=== PATIENT | male | born 1940 | race Caucasian/White ===

== ENCOUNTER 2017-01-22 09:44 | Day surgery (SDC) | payer MEDICARE ==
[~2017-01-22] VITALS: Ht 180.3 cm; Wt 75.9 kg
[~2017-01-22 09:44] MED LIST: ASPI81TA82 PO; NEBI5; VITA500015 OR
[2017-01-22 10:12] VITALS: BP 163/103; PULSE 65; RESP 18; TEMP 98; O2SAT 95
[2017-01-22] MEDS ORDERED: CHLORHEXIDINE GLUCONATE 2 % 1 PACK (2 CLOTHS) TOPICAL SCH (10:15)
[2017-01-22] MEDS ORDERED: SODIUM CHLORID 0.9% 500 ML IV PRN (10:15)
[2017-01-22] MEDS ORDERED: POVIDONE IODINE 5% (ANTISEPSIS KIT) 4 APPLICATIONS EACH NARE PRN (10:15)
[2017-01-22] MEDS ORDERED: POVIDONE IODINE 5% (ANTISEPSIS KIT) 4 APPLICATIONS EACH NARE SCH (10:15)
[2017-01-22] MEDS ORDERED: INSULIN HUMAN REGULAR 1,000 UNITS/10 ML VIAL SQ PRN (10:15)
[2017-01-22] MEDS ORDERED: CHLORHEXIDINE GLUCONATE 2 % 1 PACK (2 CLOTHS) TOPICAL PRN (10:15)
[2017-01-22] MEDS ORDERED: LACTATED RINGER'S 1000 ML IV PRN (10:15)
[2017-01-22] MEDS ORDERED: METOPROLOL TARTRATE 25 MG TAB PO PRN (10:15)
[2017-01-22] MEDS ORDERED: ceFAZolin 2 GM PREMIX 50 ML IV SCH (10:15)
[2017-01-22] MEDS ORDERED: CHOL1CAP34 PO (10:25)
[2017-01-22] MEDS ORDERED: LOSA100T PO (10:25)
[2017-01-22] MEDS ORDERED: VITA150T PO (10:25)
[2017-01-22] MEDS ORDERED: LEVO125T4 PO (10:25)
[2017-01-22] MEDS ORDERED: OCUVTAB PO (10:25)
[2017-01-22] MEDS ORDERED: AMLO5TAB2 PO (10:25)
[2017-01-22] MEDS ORDERED: ASPI81CH37 CHEW (10:25)
[2017-01-22] MEDS ORDERED: MAGN1TAB14 PO (10:25)
[2017-01-22] MEDS ORDERED: VITA100T53 PO (10:25)
[2017-01-22] MEDS ORDERED: CHOL5000 PO (10:25)
[2017-01-22] MEDS ORDERED: METO-309 PO (10:25)
[2017-01-22 10:42] LABS: AUTOMATED NEUTROPHIL # 4.2 TH/MM3 (1.8-7.7); BASOPHIL % 0.3 % (0.0-2.0); EOSINOPHIL # 0.2 TH/MM3 (0-0.4); EOSINOPHIL % 3.4 % (0.0-4.0); HEMATOCRIT 46.3 % (39.0-51.0); HEMO FLAGS DIFF FINAL; LYMPH % 28.2 % (9.0-44.0); LYMPHOCYTE # 2.1 TH/MM3 (1.0-4.8); MEAN CELL VOLUME 97.7 FL (80.0-100.0); MEAN CORPUSCULAR HGB CONC 33.8 % (32.0-36.0); MONO % 10.7 % (0.0-8.0); NEUT % 57.4 % (16.0-70.0); PLATELET COUNT 386 TH/MM3 (150-450); RED BLOOD COUNT 4.74 MIL/MM3 (4.50-5.90); RED CELL DISTRIBUTION WIDTH 14.4 % (11.6-17.2); WHITE BLOOD COUNT 7.3 TH/MM3 (4.0-11.0)
[2017-01-22] MEDS ORDERED: VANCOMYCIN HCL 1000 MG VIAL ONE (10:49)
[2017-01-22] MEDS ORDERED: SODIUM CHLOR 0.9% 250 ML INJ 250 ML ONE (10:49)
[2017-01-22 10:51] LABS: APTT (PATIENT) 27.3 SEC (24.3-30.1); PROTHROMBIN TIME - PATIENT 10.8 SEC (9.8-11.6)
[2017-01-22 10:52] LABS: BICARBONATE 29.9 MEQ/L (21.0-32.0); POTASSIUM 4.1 MEQ/L (3.5-5.1)
[2017-01-22] MEDS ORDERED: MUPIROCIN 2% OINT 1 APPLIC/GM SYR NASAL SCH (11:00)
[2017-01-22] MEDS ORDERED: NS 1000 ML IV SCH (11:00)
[2017-01-22] MEDS ORDERED: VANCOMYCIN 500 MG VIAL ONE (12:35)
[2017-01-22] MEDS ORDERED: LIDOCAINE HCL 2% 50 ML VIAL ONE (12:35)
[2017-01-22] MEDS ORDERED: MIDAZOLAM HCL 2 MG/2 ML VIAL ONE (12:52)
--- NOTE | 2017-01-22 13:41 | EKG ---
Date Performed: 01/22/2017 Time Performed: 10:32:58 PTAGE: 76 years EKG: Probable dual-chamber pacemaker Abnormal ECG COMPARED TO PRIOR ELECTROCARDIOGRAM, The T wav es are now upright in the lateral precordial leads. This is nonspecific. PREVIOUS TRACING : 12/05/2011 07.09 DOCTOR: Tk Castillo Interpretating Date/Time 01/22/2017 13:39:08
--- NOTE | 2017-01-22 14:05 | CATHPROC ---
[employer] HIS Report Study Information Study Number Admission Scheduled Start Study Start [id number] 01/22/2017 01/22/2017 Jan 22 2017 12:15PM Referring Institution Admit Source Facility Department 1 Other [facility] Car Record Clerk Physician and Clinical Staff Initial Chiquita No Hotel Maintenance Technician Heather Al,RN Other Jose Guadalupe Parkinson,RT(R) Recorder Meliza Arias,ONLINE COMMUNICATIONS MANAGER Scrub Carol Villeda,FISH BUTCHER TECH2 Equipment Time Hospital Security Officer Description Size Mfg Part Number Used/Scraped [id number] 12:52 [employer] DRAPE, IOBAN 2 [id number] 26cm x 20cm Used *[id number] 12:52 [employer] SUTURE, STRIP PLUS 1/2" * Used *[id number] 12:52 [employer] PACER ADHESIVE, MASTISOL 2/3CC 2/3CC 0523-48 Used 12:52 [employer] PACER ARMENTA, LIMB * 2530 *[id number] Used [id number] 12:52 [employer] PACER PACK, PACER CUSTOM * Used *[id number] 12:52 [employer] PACER PEN, SKIN DUAL W/ RULER * Used *[id number] PROBE COVER, STERILE [id number] 12:52 [employer] * Used ULTRASOUND W/ GEL *[id number] 12:42 Needle Sponge Count 1 1 Used 12:37 Needle Sponge Count 30 1 Used SUTURE, 2-0 VICRYL [CT1] ([id number]) SUTURE, 2-0 VICRYL [CT1] ([id number]) SUTURE, 4-0 VICRYL [PS2] ([id number]) SUTURE, 4-0 VICRYL [PS2] ([id number]) [id number] 12:52 [employer],WARM AIR CCL * Used *[id number] 12:54 [employer] PACEMAKER, ASSURITY DR PAPPAS DDDR [id number] Used [place] PAD, ELECTROSURGICAL 12:52 * [id number] *[id number] Used SURGICAL GROUNDING ORANGE 13:13 [employer] PLASMABLADE, PEAD 3.0S * [id number] Used [id number] 12:52 [employer]I. ELECTRODE, PRO-PADZ BIPHASIC * Used *[id number] Equipment Model, Serial, Lot Number and Expiration Data Description Model Number Serial Number Lot Number Expiration Date PACEMAKER, ASSMADAN MENDIOLA RF [id number] 07-12-2018 History: Allergies Allergy Reaction NKDA History: Risk Factors Hypertension Dyslipidemia Yes Yes Cerebrovascular Peripheral Artery Chronic Lung On Dialysis Diabetes Disease Disease Disease Labs Hgb (g/dl) Hct (%) Platelets (thousands) 12.00-18.00 37.00-55.00 140.00-450.00 15.0 46 386 Glucose (mg/dl) BUN (mg/dl) Creatinine (mg/dl) BUN:Creatinine (1:x) 60.00-110.00 8.00-20.00 0.10-9.00 10.00-20.00 113 16 0.8 20 Na (meq/l) K (meq/l) 138.00-146.00 3.80-5.10 143 4.1 INR (PTT:PT) 0.50-2.00 1 CPK-MB (ng/ML) 0.00-7.00 Not Drawn Medication Medication Total Dose (Bolus/Oral) Medication Total Dosage/Unit 2% XYLOCAINE 50 mL Medications (Bolus/Oral) Medication Time Given Dosage/Unit Administered By Reason 2% XYLOCAINE 01/22/2017 1:11:41 PM 50 mL Chiquita Layne 50 mL 2% XYLOCAINE given in lab by Chiquita Layne via Subcutaneous. Ordered by Chiquita Layne. Medication (Drip) Medication Time Given Dosage/Unit Concentration/Unit Diluent (ml) Solution ANCEF 01/22/2017 12:28:00 PM 2 g Patient arrived on 2 g ANCEF given by Heather lA RN via Peripheral IV. IV Solutions 01/22/2017 12:39:38 PM 50 mL (IV) 500 NaCl .9 Patient arrived on IV Solutions via Peripheral IV. Pump/Drip Flow using NaCl .9. VANCOMYCIN DRIP 01/22/2017 12:28:10 PM 1 g 1 g VANCOMYCIN DRIP given in lab by Heather Al RN via Peripheral IV. Ordered by Kim Layne Initial Case Assessment Cardiovascular HR NIBP Chest Pain 65 171/100 0 Edema Present Skin color Skin None Normal Warm Dry Neurological State Oriented to time-place- Alert Moves all extremities person Respiration - General Respiration Rate SpO2 (%) (B/min) 20 99 Chronological Log Time Study Chronological Log 12:19:52 Patient arrived via Bed. 12:19:54 Patient Name, D.O.B, / Armband Verified By R.N. 12:19:57 Consent signed by the physician and the patient and verified by the Car Record Clerk staff. 12:19:59 Verbal Stimulation=2 Physical Stimulation=2 Airway=2 Respiration=2 TOTAL=8. (0=absent, 1= limited, 2=present) 12:28:00 Patient arrived on 2 g ANCEF given by Heather Al, LEANDER via Peripheral IV. 12:28:10 1 g VANCOMYCIN DRIP given in lab by Heather Al, LEANDER via Peripheral IV. Ordered by Chiquita Almaguer. 12:28:39 Presedation assessment performed by Car Record Clerk RN. 12::44 Patient has been NPO for More than 6Hrs. 12:28:45 Skin Breakdown- None 12:29:00 Patient Warmer Placed on the Table. 12:29:03 Disposable Defibrillator Pads Placed On Patient. 12:29:07 Ford Prominences Protected 12:29:13 IV Warmer Connected To Patient. 12:29:16 A # 20 IV was noted in the Antecubital (right). Grade = 0 12:33:19 A # 20 IV was noted in the Forearm (left). Grade = 0 12:33:49 History and physical on the chart or being dictated. Assessment: Initial Case, HR=65 BPM, TUWS=096/100 mmhg, Chest Pain=0, Edema=None, Color=Eryn l, Skin = Warm, Dry 12:33:51 Neurological: State=Alert, Ox3, TOHRPE Respiration: Resp=20 B/min, SpO2=99 % 12:34:49 Table restraints applied according to hospital policy 12:35:05 Bovie ground pad applied to: right hip 12:36:10 2% CHLORHEXIDINE GLUCONATE WASH AND NASAL SWIPE DONE PRIOR TO PROCEDURE. First Sponge And Instrument Count Done by Jose Guadalupe Parkinson, RT(R). 12:36:20 Hypo's: 1, Sponges: 30, Bovie/scratch: bovie/scratch Sutures: 3, Blades: 2, Instruments: 26, Syveck Patches: ~SYVECK PATCH~ 12:37:43 Left Upper Chest Prepped Times Two. 12:39:38 Patient arrived on IV Solutions via Peripheral IV. Pump/Drip Flow using NaCl .9. 12:50:41 Reference ECG taken 12:55:00 Anesthesia at bedside. Assumes care of patient. 13:04:36 MD arrived. Time Out. Correct patient, procedure, procedure equipment, site and side verified with physicia n present. Time 13:11:03 concurred by MD, individual staff and COORDINATE MEASURING EQUIPMENT OPERATOR. 13:11:34 Case Start 13:11:41 50 mL 2% XYLOCAINE given in lab by Chiquita Layne via Subcutaneous. Ordered by Kyle Layne. 13:14:18 Surgical Incision Made. 13:18:48 A pocket was created at the L Upper Chest. 13:21:16 A device was explanted. 13:21:48 One antibiotic sponges put into the surgical pocket. 13:24:53 Antibiotic sponge removed from the surgical pocket. 13:25:29 A PACEMAKER, ASSURITY DR RF DDDR was connected and placed in the pocket. 13:25:50 Pocket flushed with antibiotic solution second Sponge And Instrument Count Done by Jose Guadalupe Parkinson, (R). 13:29:41 Hypo's: 1, Sponges: 30, Bovie/scratch: bovie/scratch Sutures: 3, Blades: 2, Instruments: 26, Syveck Patches: ~SYVECK PATCH~ 13:33:16 started to close the surgical pocket 13:55:34 The pocket was closed. Final Sponge And Instrument Count Done by Heather Al RN. 13:56:47 Hypo's: 1, Sponges: 30, Bovie/scratch: bovie/scratch Sutures: 3, Blades: 2, Instruments: 26, Syveck Patches: ~SYVECK PATCH~ 13:57:25 Case End 13:57:31 Steri-strips and a sterile dressing applied to site. 13:58:03 Implant Procedure was performed. 13:58:11 A PPM Implant . (Single) 14:03:54 No case complications noted. 14:04:03 Patient moved to [facility] End Study - Contrast Media Used In Study Contrast Total Opened (mL) Total Used (mL) Total Wasted (mL) Unspecified 0 0 0 End Study - Maximum Contrast Load Max Contrast Load (mL) 474.4 End Study - Radiation Exposure Fluoro Time (minutes) 0.1 End Study - Patient Disposition Complications Transferred To No Car Record Clerk Holding
--- NOTE | 2017-01-23 11:14 | MR ---
cc: RAMA LOVETT DATE: 01/22/2017 INDICATIONS End-of-life of Guidant dual-chamber pacemaker, history of syncope, trifascicular block. PROCEDURE PERFORMED 1. Explantation end-of-life Guidant dual-chamber pacemaker. 2. Placement of a new [employer] dual chamber pacemaker. ACCESS SITE: Left subclavicular area. EQUIPMENT USED: [employer] model SO4258 dual-chamber pacemaker, serial number [id number]. Right atrial lead is Guidant model 4135 atrial lead, serial number [id number]. Right ventricle lead is Guidant model 4136, right ventricle lead, serial number [id number]. DEVICE TESTING: Right atrial lead: P wave 2.4 milliseconds, lead impedance 561, pacing threshold 1.0 volts at 0.5 milliseconds. Right ventricular lead: R wave paced, lead impedance 590 ohms, pacing threshold 1.0 volts at 0.5 milliseconds. PARAMETERS: Mode DDDR, low rate 60, upper rate 130 DIAGNOSIS: Successful replacement of the Guidant end-of-life dual-chamber pacemaker using [employer] dual-chamber device. DISPOSITION Mr. Rendon will be monitored on telemetry. He was given perioperative antibiotics. He was given instructions concerning his wound care. He will be seen back for a wound check and chronic device reprogramming in our office within 2 weeks. MD JANEEN Malloy/alma /1:42 PM /11:06 AM [facility]
== END 2017-01-22 15:25 | disposition home or self-care (01) ==
LOC: HCAT 09:44 → HDIC 09:45 → HCAT 15:25
PROVIDERS: ATTEND Internal Medicine Interventional Cardiology
DX: Z45.010 Encounter for checking and testing of cardiac pacemaker pulse generator [battery] (principal); I45.3 Trifascicular block; I10 Essential (primary) hypertension; Z91.89 Other specified personal risk factors, not elsewhere classified; I49.3 Ventricular premature depolarization; I35.0 Nonrheumatic aortic (valve) stenosis; I35.1 Nonrheumatic aortic (valve) insufficiency; I34.0 Nonrheumatic mitral (valve) insufficiency; R06.02 Shortness of breath; Z79.82 Long term (current) use of aspirin
CPT/HCPCS: 00400; 33228; 80048; 85025; 85610; 85730; 86850; 86900; 86901; 93005; C1785; J0690; J2250; J3010; J3370; J7050

== ENCOUNTER → 2017-03-15 | Outpatient (CLI) | payer MEDICARE ==
[~2017-03-15] MED LIST changes: +AMLO5TAB2 PO; +ASPI81CH37 CHEW; -ASPI81TA82 PO; +CHOL5000 PO; +LEVO125T4 PO; +LOSA100T PO; +MAGN1TAB14 PO; +METO-309 PO; -NEBI5; +OCUVTAB PO; +VITA100T53 PO; +VITA150T PO; -VITA500015 OR
[2017-03-15 09:07] LABS: ANION GAP 4 MEQ/L (5-15); AST (GOT) 21 U/L (15-37); BICARBONATE 31.2 MEQ/L (21.0-32.0); BLOOD UREA NITROGEN 15 MG/DL (7-18); CHLORIDE 106 MEQ/L (98-107); GLOMERULAR FILTRATION RATE 97 ML/MIN (>89); GLUCOSE,FASTING 101 MG/DL (74-99); SODIUM (NA) 141 MEQ/L (136-145)
[2017-03-15 09:11] LABS: ALKALINE PHOSPHATASE 82 U/L (45-117); ALT (GPT) 18 U/L (12-78); HDL CHOLESTEROL 85.6 MG/DL (40.0-60.0); LDL CHOLESTEROL 59 MG/DL (0-99); TOTAL BILIRUBIN ADULT 0.6 MG/DL (0.2-1.0)
== END ==
LOC: CLAB 07:59
PROVIDERS: ATTEND Internal Medicine Interventional Cardiology
DX: I10 Essential (primary) hypertension (principal); Z79.899 Other long term (current) drug therapy
CPT/HCPCS: 36415; 80053; 80061